=== PATIENT | female | born 1955 | race Caucasian/White ===

== ENCOUNTER 2020-03-23 11:55 | Observation (INO) | payer OTHER ==
[2020-03-23] MEDS ORDERED: SODIUM CHLORIDE 0.9% 500 ML 500 ML IV ONE (12:17)
[2020-03-23] MEDS ORDERED: HYDROmorphone 1 MG/ML 1 ML SYRINGE IVP STA (12:17)
--- NOTE | 2020-03-23 12:20 | ED ---
General Adult HPI - General Chief complaint: Extremity Problem,Nontraumatic Stated complaint: Hands and leg pain Time Seen by Provider: 03/23/20 12:02 Source: patient, RN notes reviewed, old records reviewed Mode of arrival: ambulatory Limitations: no limitations - History of Present Illness Initial comments: 64-year-old female presents for evaluation of bilateral hand pain, bilateral knee pain. Patient states symptoms have been present for approximately 3 weeks although she has had chronic issues with generalized pain for some time. She has followed with both nephrology and rheumatology. 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 She has been taking Ultram and recently increased her dose with minimal improvement. She states the pain is similar to her chronic pain but has been worse for the past 3 weeks. She is hoping to have a referral to a pain management. She states that she previously followed with rheumatology. Was told that she did not have a rheumatological condition. She is managed by her primary care and nephrology. No fever. No vomiting. No chest pain. No abdominal pain, she had some constipation but this has resolved. - Related Data Home Medications Medication Instructions Recorded Confirmed Acetaminophen Tab [Tylenol] 500 mg PO DAILY PRN 03/23/20 03/23/20 Atorvastatin [Lipitor] 10 mg PO DAILY 03/23/20 03/23/20 Cholecalciferol [Vitamin D3 (25 125 mcg PO DAILY 03/23/20 03/23/20 Mcg = 1000 Iu)] Multivitamins, Thera [Multivitamin 1 tab PO DAILY 03/23/20 03/23/20 (formulary)] amLODIPine [Norvasc] 5 mg PO DAILY 03/23/20 03/23/20 lisinopriL [Zestril] 40 mg PO DAILY 03/23/20 03/23/20 traMADol HCl [Ultram] 50 mg PO TID PRN 03/23/20 03/23/20 Allergies Allergy/AdvReac Type Severity Reaction Status Date / Time codeine Allergy Confusion Verified 03/23/20 13:16 Review of Systems ROS Statement: Those systems with pertinent positive or pertinent negative responses have been documented in the HPI. ROS Other: All systems not noted in ROS Statement are negative. Past Medical History Past Medical History: Hyperlipidemia, Hypertension Additional Past Medical History / Comment(s): Glomerulonephritis History of Any Multi-Drug Resistant Organisms: None Reported Past Surgical History: Section Past Psychological History: No Psychological Hx Reported Smoking Status: Never smoker Past Alcohol Use History: None Reported Past Drug Use History: None Reported General Exam Limitations: no limitations General appearance: alert, in no apparent distress Head exam: Present: atraumatic, normocephalic Eye exam: Present: normal appearance, PERRL ENT exam: Present: normal exam Neck exam: Present: normal inspection. Absent: tenderness, meningismus Respiratory exam: Present: normal lung sounds bilaterally. Absent: respiratory distress, wheezes Cardiovascular Exam: Present: regular rate. Absent: normal rhythm, bradycardia, tachycardia GI/Abdominal exam: Present: soft. Absent: distended, tenderness, guarding, rebound Extremities exam: Present: tenderness, normal capillary refill, joint swelling (Mild soft tissue swelling of both hands, no erythema, no induration) Neurological exam: Present: alert, oriented X3, CN II-XII intact, normal gait. Absent: motor sensory deficit Psychiatric exam: Present: normal affect, normal mood Skin exam: Present: warm, dry, intact. Absent: cyanosis, diaphoretic Course Vital Signs 03/23/20 11:57 Temperature 98.4 F Pulse Rate 113 H Respiratory 18 Rate Blood Pressure 141/73 O2 Sat by Pulse 96 Oximetry Medical Decision Making - Medical Decision Making 64-year-old female with acute on chronic pain. I did obtain laboratory testing this patient, she has normal CBC, CMP showing no significant abnormalities, she has a mildly elevated CRP, urinalysis showing some hematuria otherwise unremarkable. Patient is in significant pain, discomfort. She will be admitted for pain control, case discussed with Dr. Mas who will admit. - Lab Data Result diagrams: 03/23/20 12:41 03/23/20 12:41 Lab Results 03/23/20 03/23/20 03/23/20 Range/Units 12:41 12:41 12:41 WBC 10.2 (3.8-10.6) k/uL RBC 4.36 (3.80-5.40) m/uL Hgb 13.8 (11.4-16.0) gm/dL Hct 39.9 (34.0-46.0) % MCV 91.4 (80.0-100.0) fL MCH 31.6 (25.0-35.0) pg MCHC 34.6 (31.0-37.0) g/dL RDW 12.0 (11.5-15.5) % Plt Count 232 (150-450) k/uL MPV 7.2 Neutrophils % 83 % Lymphocytes % 12 % Monocytes % 4 % Eosinophils % 2 % Basophils % 0 % Neutrophils # 8.5 H (1.3-7.7) k/uL Lymphocytes # 1.2 (1.0-4.8) k/uL Monocytes # 0.4 (0-1.0) k/uL Eosinophils # 0.2 (0-0.7) k/uL Basophils # 0.0 (0-0.2) k/uL PT 10.4 (9.0-12.0) sec INR 1.0 (<1.2) APTT 22.0 (22.0-30.0) sec Sodium 137 (137-145) mmol/L Potassium 4.1 (3.5-5.1) mmol/L Chloride 108 H (98-107) mmol/L Carbon Dioxide 21 L (22-30) mmol/L Anion Gap 8 mmol/L BUN 14 (7-17) mg/dL Creatinine 0.89 (0.52-1.04) mg/dL Est GFR (CKD-EPI)AfAm 80 (>60 ml/min/1.73 sqM) Est GFR (CKD-EPI)NonAf 69 (>60 ml/min/1.73 sqM) Glucose 117 H (74-99) mg/dL Calcium 10.6 H (8.4-10.2) mg/dL Magnesium 1.8 (1.6-2.3) mg/dL Total Bilirubin 0.9 (0.2-1.3) mg/dL AST 31 (14-36) U/L ALT 27 (4-34) U/L Alkaline Phosphatase 133 H (38-126) U/L C-Reactive Protein 18.2 H (<10.0) mg/L Total Protein 7.9 (6.3-8.2) g/dL Albumin 4.3 (3.5-5.0) g/dL Urine Color Urine Appearance (Clear) Urine pH (5.0-8.0) Ur Specific Orange (1.001-1.035) Urine Protein (Negative) Urine Glucose (UA) (Negative) Urine Ketones (Negative) Urine Blood (Negative) Urine Nitrite (Negative) Urine Bilirubin (Negative) Urine Urobilinogen (<2.0) mg/dL Ur Leukocyte Esterase (Negative) Urine RBC (0-5) /hpf Urine WBC (0-5) /hpf Ur Squamous Epith Cells (0-4) /hpf Urine Bacteria (None) /hpf Urine Mucus (None) /hpf Urine Yeast (Budding) (None) /hpf 03/23/20 Range/Units 12:57 WBC (3.8-10.6) k/uL RBC (3.80-5.40) m/uL Hgb (11.4-16.0) gm/dL Hct (34.0-46.0) % MCV (80.0-100.0) fL MCH (25.0-35.0) pg MCHC (31.0-37.0) g/dL RDW (11.5-15.5) % Plt Count (150-450) k/uL MPV Neutrophils % % Lymphocytes % % Monocytes % % Eosinophils % % Basophils % % Neutrophils # (1.3-7.7) k/uL Lymphocytes # (1.0-4.8) k/uL Monocytes # (0-1.0) k/uL Eosinophils # (0-0.7) k/uL Basophils # (0-0.2) k/uL PT (9.0-12.0) sec INR (<1.2) APTT (22.0-30.0) sec Sodium (137-145) mmol/L Potassium (3.5-5.1) mmol/L Chloride (98-107) mmol/L Carbon Dioxide (22-30) mmol/L Anion Gap mmol/L BUN (7-17) mg/dL Creatinine (0.52-1.04) mg/dL Est GFR (CKD-EPI)AfAm (>60 ml/min/1.73 sqM) Est GFR (CKD-EPI)NonAf (>60 ml/min/1.73 sqM) Glucose (74-99) mg/dL Calcium (8.4-10.2) mg/dL Magnesium (1.6-2.3) mg/dL Total Bilirubin (0.2-1.3) mg/dL AST (14-36) U/L ALT (4-34) U/L Alkaline Phosphatase (38-126) U/L C-Reactive Protein (<10.0) mg/L Total Protein (6.3-8.2) g/dL Albumin (3.5-5.0) g/dL Urine Color Yellow Urine Appearance Clear (Clear) Urine pH 6.0 (5.0-8.0) Ur Specific Orange 1.016 (1.001-1.035) Urine Protein 2+ H (Negative) Urine Glucose (UA) Negative (Negative) Urine Ketones Negative (Negative) Urine Blood Large H (Negative) Urine Nitrite Negative (Negative) Urine Bilirubin Negative (Negative) Urine Urobilinogen <2.0 (<2.0) mg/dL Ur Leukocyte Esterase Negative (Negative) Urine RBC 93 H (0-5) /hpf Urine WBC 4 (0-5) /hpf Ur Squamous Epith Cells <1 (0-4) /hpf Urine Bacteria Rare H (None) /hpf Urine Mucus Rare H (None) /hpf Urine Yeast (Budding) Rare H (None) /hpf Disposition Clinical Impression: Intractable pain Disposition: ADMITTED IP TO [facility] Condition: Stable Is patient prescribed a controlled substance at d/c from ED?: No Referrals: Dominik Xiong MD [Primary Care Provider] - 1-2 days Decision to Admit Reason: Admit from EC Decision Date: 03/23/20 Decision Time: 13:37
[2020-03-23 13:09] LABS: Basophils % (A) 0 %; Eosinophils # (A) 0.2 k/uL (0-0.7); Eosinophils % (A) 2 %; HCT 39.9 % (34.0-46.0); HGB 13.8 gm/dL (11.4-16.0); Lymphocytes # (A) 1.2 k/uL (1.0-4.8); Lymphocytes % (A) 12 %; MCH 31.6 pg (25.0-35.0); MCHC 34.6 g/dL (31.0-37.0); MCV 91.4 fL (80.0-100.0); Mean Platelet Volume 7.2; Monocytes # (A) 0.4 k/uL (0-1.0); Monocytes % (A) 4 %; Neutrophils # (A) 8.5 k/uL (1.3-7.7); Neutrophils % (A) 83 %; Platelet Count 232 k/uL (150-450); RBC 4.36 m/uL (3.80-5.40); WBC 10.2 k/uL (3.8-10.6)
[2020-03-23 13:18] LABS: Prothrombin Time 10.4 sec (9.0-12.0)
[2020-03-23 13:21] LABS: Appearance,Urine Clear (Clear); Bacteria,Urine Rare /hpf; Bilirubin,Urine Negative (Negative); Blood,Urine Large (Negative); Budding Yeast,Urine Rare /hpf; Color,Urine Yellow; Glucose,Urine (UA) Negative (Negative); Ketones,Urine Negative (Negative); Leukocyte Esterase,Urine Negative (Negative); Mucus,Urine Rare /hpf; Nitrite,Urine Negative (Negative); Protein,Urine 2+ (Negative); RBC,Urine 93 /hpf (0-5); Specific Gravity,Urine 1.016 (1.001-1.035); Squamous Epithelial Cell,Urine <1 /hpf (0-4); Urobilinogen,Urine <2.0 mg/dL (<2.0); WBC,Urine 4 /hpf (0-5)
[2020-03-23 13:22] LABS: Albumin 4.3 g/dL (3.5-5.0); C Reactive Protein 18.2 mg/L (<10.0); Calcium 10.6 mg/dL (8.4-10.2); Magnesium 1.8 mg/dL (1.6-2.3); Potassium 4.1 mmol/L (3.5-5.1); Total Bilirubin 0.9 mg/dL (0.2-1.3); Total Protein 7.9 g/dL (6.3-8.2)
[2020-03-23] MEDS ORDERED: NALOXONE 0.4 MG/ML 1 ML VIAL IV PRN (13:34)
[2020-03-23] MEDS ORDERED: HYDROmorphone 1 MG/ML 1 ML SYRINGE IVP PRN (13:34)
[2020-03-23] MEDS ORDERED: HYDROmorphone 0.5 MG/0.5 ML SYRINGE IVP PRN (13:34)
[2020-03-23] MEDS ORDERED: traMADol 50 MG TAB PO PRN (16:10)
[2020-03-23] MEDS ORDERED: ALPRAZolam 0.25 MG TAB PO PRN (16:12)
[2020-03-23] MEDS ORDERED: TEMAZEPAM 15 MG CAP PO PRN (16:12)
--- NOTE | 2020-03-23 16:35 | XR ---
EXAMINATION TYPE: XR chest 1V portable DATE OF EXAM: 03/23/2020 Comparison: None Clinical History: 64-year-old female CHF, shortness of breath Findings: The heart is borderline the mildly enlarged. Mild interstitial prominence especially in the mid and l ower lungs. No consolidation or pleural effusion otherwise seen. Impression: Borderline to mildly enlarged heart size. Interstitial prominence could reflect mild pulmonary vascul ar congestion. No teresa infiltrate or pulmonary edema.
--- NOTE | 2020-03-23 16:52 | HP ---
HISTORY AND PHYSICAL DATE OF SERVICE: 03/23/2020 CHIEF COMPLAINTS: Joint pains and failure of outpatient treatment. HISTORY OF PRESENT ILLNESS: This 64-year-old woman with a past medical history of hypertension, hyperlipidemia, history of glomerulonephritis, section, being followed by Dr. Anila Gramajo in the outpatient setting, is also following with Nephrology for glomerulonephritis. The patient is complaining of significant aches and pains all over the body as well as both wrist joints and both knee joints for the last several months. Because of lack of improvement with outpatient treatment, the patient came to [facility] and was admitted for further evaluation and treatment. The patient is also seen by Rheumatology, Dr. Kieta, and her multiple testing results are not available. There is no history of any fever, rigor or chills. No history of headache, loss of consciousness, seizures at this time. PAST MEDICAL HISTORY: History of hypertension, hyperlipidemia, history of glomerulonephritis, history of section. HOME MEDICATIONS: 1. Multivitamins 1 p.o. daily. 2. Vitamin D3 125 mcg p.o. daily. 3. Zestril 40 mg p.o. daily. 4. Norvasc 5 mg daily. 5. Lipitor 10 mg daily. 6. Ultram 50 mg t.i.d. p.r.n. 7. Tylenol p.r.n. ALLERGIES: CODEINE. FAMILY HISTORY: No history of heart disease or strokes in the family. SOCIAL HISTORY: No history of smoking. No history of alcohol intake. REVIEW OF SYSTEMS: ENT: No diminished hearing. No diminished vision. CARDIOVASCULAR SYSTEM: No angina, palpitations. RESPIRATORY SYSTEM: As mentioned earlier. GI: No nausea, vomiting. : As mentioned earlier. NERVOUS SYSTEM: No numbness, weakness. ALLERGY/IMMUNOLOGY: No asthma, hayfever. MUSCULOSKELETAL: As mentioned earlier. HEMATOLOGY/ONCOLOGY: No history of anemia. ENDOCRINE: No history of diabetes, hypothyroidism. CONSTITUTIONAL: As mentioned earlier. DERMATOLOGY: Negative. RHEUMATOLOGY: As mentioned earlier. PSYCHIATRY: Negative. PHYSICAL EXAMINATION: Alert and oriented x3. Pulse 113, blood pressure 141/73, respiration 18, temperature 98.4, pulse ox 96% on room air. HEENT: Conjunctivae normal. NECK: No jugular venous distention. CARDIOVASCULAR SYSTEM: S1, S2 muffled. RESPIRATORY SYSTEM: Breath sounds diminished at the bases. No rhonchi. No crackles. ABDOMEN: Soft, non-tender. No mass palpable. LEGS: No edema. No swelling. NERVOUS SYSTEM: Higher functions as mentioned earlier. Moves all 4 limbs. No focal motor or sensory deficit. LYMPHATICS: No lymph node palpable in neck, axillae or groin. SKIN: No ulcer, rash, bleeding. JOINTS: Significant pain on movement of both wrist joints and interphalangeal joints as well as metacarpal joints. Pain with movement of both knee joints also present. LABS: CBC within normal limits. CO2 is 21. Calcium is 10.6, glucose 117. Alkaline phosphatase 133 and C-reactive protein is 18.2. ASSESSMENT: 1. Bilateral arthritis with failure of outpatient treatment with severe pain. Rule out collagen muscular disorder. 2. History of glomerulonephritis. 3. Elevated CRP. 4. Hypercalcemia, mild. 5. Hematuria. 6. Glomerulonephritis history. 7. Hypertension. 8. Hyperlipidemia. 9. History of section. 10.Obesity with body mass index of 30.7. 11.FULL CODE. RECOMMENDATIONS AND DISCUSSION: In this 64-year-old woman who presented with multiple complex medical issues, we will monitor the patient closely, continue the current medications, continue symptomatic treatment. I recommend pain management and nephrology evaluations. Otherwise, baseline rheumatology workup repeated. Prognosis guarded because of multiple complex medical issues. Further recommendations to follow. A copy of this dictation is being forwarded to Dr. Anila Gramajo, who is the primary physician. See orders for details. DVT prophylaxis. GI prophylaxis. MMODL / IJN: [id number] /
[2020-03-23] MEDS: ACETAMINOPHEN TAB 325 MG TAB PO PRN (17:00)
[2020-03-23] MEDS: SODIUM CHLORIDE 0.9% 1,000 ML IV SCH (17:02)
[2020-03-23 17:26] LABS: Uric Acid 6.4 mg/dL (3.7-7.4)
[2020-03-23] MEDS ORDERED: ONDANSETRON 4 MG/2 ML VIAL IVP PRN (17:38)
[2020-03-23] MEDS: HEPARIN SODIUM,PORCINE 5,000 UNIT/ML 1 ML VIAL SQ SCH (21:01)
[2020-03-23 23:26] LABS: DNA Double-Stranded NEGATIVE (NEGATIVE)
[2020-03-24 05:49] LABS: Basophils % (A) 1 %; Eosinophils # (A) 0.1 k/uL (0-0.7); Eosinophils % (A) 3 %; HCT 35.4 % (34.0-46.0); HGB 12.1 gm/dL (11.4-16.0); Lymphocytes # (A) 1.3 k/uL (1.0-4.8); Lymphocytes % (A) 32 %; MCH 31.8 pg (25.0-35.0); MCHC 34.3 g/dL (31.0-37.0); MCV 92.8 fL (80.0-100.0); Mean Platelet Volume 7.2; Monocytes # (A) 0.2 k/uL (0-1.0); Monocytes % (A) 5 %; Neutrophils # (A) 2.4 k/uL (1.3-7.7); Neutrophils % (A) 58 %; Platelet Count 194 k/uL (150-450); RBC 3.82 m/uL (3.80-5.40); RDW 12.3 % (11.5-15.5); WBC 4.1 k/uL (3.8-10.6)
[2020-03-24 06:01] LABS: Albumin 3.3 g/dL (3.5-5.0); Calcium 9.6 mg/dL (8.4-10.2); Potassium 3.9 mmol/L (3.5-5.1); Total Bilirubin 0.6 mg/dL (0.2-1.3); Total Protein 6.3 g/dL (6.3-8.2)
[2020-03-24] MEDS: PANTOPRAZOLE 40 MG TABLET PO SCH (06:31)
[2020-03-24] MEDS: ACETAMINOPHEN TAB 325 MG TAB PO PRN (06:34)
[2020-03-24] MEDS: MULTIVITAMINS, THERA 1 EACH TAB PO SCH (09:36)
[2020-03-24] MEDS: CHOLECALCIFEROL 25 MCG (1000 IU) TABLET PO SCH (09:36)
[2020-03-24] MEDS: amLODIPine 5 MG TAB PO SCH (09:36)
[2020-03-24] MEDS: ATORVASTATIN 10 MG TAB PO SCH (09:36)
[2020-03-24] MEDS: lisinopriL 20 MG TAB PO SCH (09:36)
[2020-03-24] MEDS: HEPARIN SODIUM,PORCINE 5,000 UNIT/ML 1 ML VIAL SQ SCH ×2 (09:36→20:55)
--- NOTE | 2020-03-24 10:26 | P.NPCON ---
History of Present Illness - Reason for Consult glomerulonephritis - History of Present Illness Reason for consultation: GN History of present illness: Patient is a 64-year-old female seen in renal consultation for GN. Patient has history of biopsy-proven fibrillary glomerulonephritis. She underwent kidney biopsy in September 2019. Patient's baseline creatinine is in the range of 0.8-1. Patient presented to the hospital with pain and swelling in her hands. Patient's is been going on for the last few weeks. She was taking Tylenol and Ultram for pain which helped temporarily. She denies any edema in her lower extremities. No gross hematuria. No vomiting or diarrhea. Oral intake has been good. No chest pain or shortness of breath. She denies any history of malignancy. No fever or chills. Blood pressure is stable. She is maintained on lisinopril as well as Lipitor outpatient. She denies use of nonsteroidals. Patient states she has seen rheumatology in the past but is unsure of their recommendations. No rashes. Vital signs are stable. General: The patient appeared well nourished and normally developed. HEENT: Head exam is unremarkable. Neck is without jugular venous distension. LUNGS: Lungs are clear to auscultation and percussion. Breath sounds decreased. HEART: Rate and Rhythm are regular. ABDOMEN: Soft, nontender. EXTREMITITES: No edema in the lower extremities. Hands are swollen. Past Medical History Past Medical History: Hyperlipidemia, Hypertension, Renal Disease Additional Past Medical History / Comment(s): Glomerulonephritis History of Any Multi-Drug Resistant Organisms: None Reported Past Surgical History: Section, Tonsillectomy Additional Past Surgical History / Comment(s): Kidney biopsy Sep 2019 Past Anesthesia/Blood Transfusion Reactions: No Reported Reaction Additional Past Anesthesia/Blood Transfusion Reaction / Comment(s): never had a blood transfusion Past Psychological History: No Psychological Hx Reported Smoking Status: Never smoker Past Alcohol Use History: None Reported Past Drug Use History: None Reported - Past Family History Mother History Unknown: Yes Additional Family Medical History / Comment(s): adopted Medications and Allergies Home Medications Medication Instructions Recorded Confirmed Type Acetaminophen Tab [Tylenol] 500 mg PO DAILY PRN 03/23/20 03/23/20 History Atorvastatin [Lipitor] 10 mg PO DAILY 03/23/20 03/23/20 History Cholecalciferol [Vitamin D3 (25 125 mcg PO DAILY 03/23/20 03/23/20 History Mcg = 1000 Iu)] Multivitamins, Thera [Multivitamin 1 tab PO DAILY 03/23/20 03/23/20 History (formulary)] amLODIPine [Norvasc] 5 mg PO DAILY 03/23/20 03/23/20 History lisinopriL [Zestril] 40 mg PO DAILY 03/23/20 03/23/20 History traMADol HCl [Ultram] 50 mg PO TID PRN 03/23/20 03/23/20 History Allergies Allergy/AdvReac Type Severity Reaction Status Date / Time codeine Allergy Confusion Verified 03/23/20 18:09 Physical Exam Vitals: Vital Signs Temp Pulse Pulse Resp BP BP Pulse Ox 03/24/20 09:03 98.1 F 77 14 116/71 97 03/24/20 01:58 97.9 F 67 16 113/69 96 03/23/20 20:05 98.2 F 73 16 109/67 95 03/23/20 16:50 97.3 F L 86 16 127/73 97 03/23/20 14:00 86 16 124/79 98 03/23/20 11:57 98.4 F 113 H 18 141/73 96 Intake and Output 03/23/20 03/24/20 03/24/20 22:59 06:59 14:59 Output Total 425 Balance -425 Output: Urine 425 Other: # [place] 1 Weight 77.5 kg Results - Lab Results Most recent lab results Calcium 9.6 mg/dL (8.4-10.2) 03/24/20 05:34 Magnesium 1.8 mg/dL (1.6-2.3) 03/23/20 12:41 03/24/20 05:34 03/24/20 05:34 Assessment and Plan Plan: Assessment: 1. 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 Baseline creatinine 0.8-1. She has not had nephrotic range proteinuria. 2. Bilateral hand swelling and pain. Possibly peripheral neuropathy versus autoimmune. BHUPENDRA positive. Double-stranded DNA antibody negative. 3. Hypertension with chronic disease. Controlled. Plan: Check electrophoresis and immunofixation studies to rule out underlying monoclonal gammopathy. Check serologies for Sjogren's as well as hepatitis C. Consult rheumatology. Check UPC. Maintain TONIE inhibitor and statin. Thank you for the consultation. I will continue to follow the patient with you during her hospital stay.
[2020-03-24 11:56] LABS: Creatinine,Urine Random 87.9 mg/dL; Protein/Creatinine Ratio,Urine 0.58
[2020-03-24] MEDS: SODIUM CHLORIDE 0.9% 1,000 ML IV SCH (13:47)
--- NOTE | 2020-03-24 15:03 | P.PAINCN ---
History of Present Illness - Reason for Consult Consult date: 03/24/20 - History of Present Illness This is a 64 years old female who was admitted to [facility] secondary to severe intense pain in the knee and upper extremity, patient failed management in outpatient setting., Patient reported that she had one year history of severe knee pain, bilateral wrist pain, and she was treated as an outpatient by a offset press assistant , and patient was found to have glomerulonephritis, patient reported that over the last few weeks intensity of the pain in the knee and wrist increases significantly, it is constant and increases with any movement, patient currently on Ultram 50 mg 3 times a day and Dilaudid 0.5 mg every 3 hours, she denies any side effect of the medication and she reported that the current medication helping to control her pain Past Medical History Past Medical History: Hyperlipidemia, Hypertension, Renal Disease Additional Past Medical History / Comment(s): Glomerulonephritis History of Any Multi-Drug Resistant Organisms: None Reported Past Surgical History: Section, Tonsillectomy Additional Past Surgical History / Comment(s): Kidney biopsy Sep 2019 Past Anesthesia/Blood Transfusion Reactions: No Reported Reaction Additional Past Anesthesia/Blood Transfusion Reaction / Comm: never had a blood transfusion Past Psychological History: No Psychological Hx Reported Smoking Status: Never smoker Past Alcohol Use History: None Reported Past Drug Use History: None Reported - Past Family History Mother History Unknown: Yes Additional Family Medical History / Comment(s): adopted Medications and Allergies Home Medications Medication Instructions Recorded Confirmed Type Acetaminophen Tab [Tylenol] 500 mg PO DAILY PRN 03/23/20 03/23/20 History Atorvastatin [Lipitor] 10 mg PO DAILY 03/23/20 03/23/20 History Cholecalciferol [Vitamin D3 (25 125 mcg PO DAILY 03/23/20 03/23/20 History Mcg = 1000 Iu)] Multivitamins, Thera [Multivitamin 1 tab PO DAILY 03/23/20 03/23/20 History (formulary)] amLODIPine [Norvasc] 5 mg PO DAILY 03/23/20 03/23/20 History lisinopriL [Zestril] 40 mg PO DAILY 03/23/20 03/23/20 History traMADol HCl [Ultram] 50 mg PO TID PRN 03/23/20 03/23/20 History Allergies Allergy/AdvReac Type Severity Reaction Status Date / Time codeine Allergy Confusion Verified 03/23/20 18:09 Physical Exam Vitals: Vital Signs Temp Pulse Resp BP Pulse Ox 03/24/20 13:45 97.8 F 79 14 136/74 95 03/24/20 09:03 98.1 F 77 14 116/71 97 03/24/20 01:58 97.9 F 67 16 113/69 96 03/23/20 20:05 98.2 F 73 16 109/67 95 03/23/20 16:50 97.3 F L 86 16 127/73 97 Intake and Output 03/23/20 03/24/20 03/24/20 22:59 06:59 14:59 Output Total 425 Balance -425 Output: Urine 425 Other: # Voids 2 # Emeses 1 Weight 77.5 kg Physical Examinations : -Constitutiona : Cooperative , not in acute distress . -HEENT : nech : supple , no Lymphadenopathy , normal thyroid size . : eyes : no ptosis , no icterus, no photo phobia . - neurologic : Cranial nerve II to XII intact , no focal neurological deffecit . -psychatric : alert , oriented X 3 , appropriate affect , intact judgment and insight . -Lymphatic : no Lymphadenopathy . - musculoskeltal : Cervical Spine motor stregnth in the deltoid and biceps, normal right side , normal Left side motor stregnth biceps and the wrist extensors normal right side ,normal left side . motor stregnth in the triceps muscle . normal Right side , normal Left side deep tendon reflexes normal at the biceps , normal at Brachioradialis , normal at triceps. Bilateral wrist and hand . There is very minimal edema,no erythema, Rest and fingers joint. Range of motion, no signs of effusion, Normal sensation Lumber spine moter stegnth lower extremities ,thigh and legs 5/5 Right side , 5/5 Left side deep tendon reflexes : normal Knee Jerk , normal ankle Jerk Knee joints = tenderness over the medial aspect of the left knee No erythema , no effusion , no discoloration or redness of the skin Normal sensation 4 range of motion active and passive movement of the knee joint is associated with pain Results CBC & Chem 7: 03/24/20 05:34 03/24/20 05:34 Labs: Abnormal Lab Results - Last 24 Hours (Table) 03/23/20 03/23/20 03/24/20 Range/Units 12:41 12:41 05:34 ESR 33 H (0-20) mm/hr Chloride 108 H (98-107) mmol/L Albumin 3.3 L (3.5-5.0) g/dL BHUPENDRA Screen POSITIVE A (NEGATIVE) Microbiology - Last 24 Hours (Table) 03/23/20 12:57 Urine Culture - Preliminary Urine,Voided Assessment and Plan Plan: Assessment and plan=1-Bilateral wrist and hand pain, and bilateral knee pain , could be secondary to autoimmune disorder versus peripheral neuropathy Patient currently on Ultram , Dilaudid ,Tylenol, and she reported that this medication helping to some degree to control her pain Recommend start patient on Medrol dose pack , and patient should be evaluated by a offset press assistant for an inpatient or outpatient Time with Patient: Greater than 30 PQRS Measure Charge Sheet PQRS Narrative: Do You Want the Pneumonia No Vaccine AT THIS TIME? Blood Pressure [Left Arm] 136/74 Blood Pressure 124/79 Pain Intensity [Bilateral Hand 0 ] Pain Intensity 0 Pain Scale Used Numeric (1 - 10) Scale Used Numeric (1 - 10) Home Medications: Ambulatory Orders Acetaminophen Tab [Tylenol] 500 mg PO DAILY PRN 03/23/20 Atorvastatin [Lipitor] 10 mg PO DAILY 03/23/20 Cholecalciferol [Vitamin D3 (25 Mcg = 1000 Iu)] 125 mcg PO DAILY 03/23/20 Multivitamins, Thera [Multivitamin (formulary)] 1 tab PO DAILY 03/23/20 amLODIPine [Norvasc] 5 mg PO DAILY 03/23/20 lisinopriL [Zestril] 40 mg PO DAILY 03/23/20 traMADol HCl [Ultram] 50 mg PO TID PRN 03/23/20
[2020-03-24 15:48] VITALS: BMI 31.2
--- NOTE | 2020-03-24 16:03 | PN ---
PROGRESS NOTE DATE OF SERVICE: 03/24/2020 This 64-year-old woman who was admitted with bilateral arthritis and failure of outpatient treatment is being closely monitored at this time. The patient has fibrillary glomerulonephritis. BHUPENDRA is positive. Otherwise, double-stranded DNA was negative. Dr. Tesfaye has recommended multiple immunological assays at this time. The patient is being closely monitored. Past medical history reviewed. REVIEW OF SYSTEMS: CARDIOVASCULAR SYSTEM: No angina, palpitations. RESPIRATORY SYSTEM: As mentioned earlier. GI: As mentioned earlier. : No dysuria or retention. NERVOUS SYSTEM: No numbness, weakness. CURRENT MEDICATIONS: Reviewed. They include Tylenol, Xanax, Norvasc, Lipitor, Neurontin, heparin, Zestril. Doses are reviewed. PHYSICAL EXAMINATION: Alert and oriented x3. Pulse 79, blood pressure 130/74, respiration 14, temperature 97.8, pulse ox 94% on room air. HEENT: Conjunctivae normal. NECK: No jugular venous distention. CARDIOVASCULAR SYSTEM: S1, S2 muffled. RESPIRATORY SYSTEM: Breath sounds diminished at the bases. No rhonchi. No crackles. ABDOMEN: Soft, non-tender. LEGS: No edema. No swelling. NERVOUS SYSTEM: No focal deficit. EXAMINATION OF JOINTS: Minimal tenderness present. LABS: Labs at this time show CBC within normal limits. Sodium 138, potassium 3.9. BHUPENDRA is positive. ASSESSMENT: 1. Bilateral arthritis in major and minor joints, bilateral, symmetrical, with failure of outpatient treatment. Severe pain. Rule out collagen vascular disorders or rheumatoid arthritis. 2. History of glomerulonephritis, fibrillary. 3. Positive BHUPENDRA. 4. Elevated CRP. 5. Mild hypercalcemia. 6. Hematuria. 7. Hypertension. 8. Hyperlipidemia. 9. History of section. 10.Obesity with body mass index of 30.7. 11.FULL CODE. RECOMMENDATIONS AND DISCUSSION: I recommend to continue current medications, continue with symptomatic treatment. Otherwise at this time we will continue to monitor. The renal function is stable. The patient has persistent hematuria. Chest x-ray is unremarkable. Recommend C-ANCA, p- ANCA as well as the rest of the rheumatology workup and vascular disorder workup ordered by Dr. Tesfaye. COVID-19 is negative from the [facility] system. I would also recommend a tertiary care referral to Rheumatology in an institution such as [facility]. Discussed with the patient, who understands and agrees. Further recommendations to follow. MMODL / IJN: [id number] /
[2020-03-24] MEDS: methylPREDNISolone 4 MG TAB TAPER PO SCH (16:04)
[2020-03-24 16:33] LABS: ANA Pattern Speckled
[2020-03-24 17:17] LABS: Hepatitis A Antibody IgM Non-Reactive (Non-Reactive); Hepatitis B Core IgM Non-Reactive (Non-Reactive); Hepatitis B Surface Antigen Non-Reactive (Non-Reactive); Hepatitis C IgG Antibody Non-Reactive (Non-Reactive)
[2020-03-24] MEDS: GABAPENTIN 100 MG CAP PO SCH (20:56)
[2020-03-25 07:45] VITALS: BP 105/66; PULSE 72; RESP 16; TEMP 98.2
[2020-03-25] MEDS: PANTOPRAZOLE 40 MG TABLET PO SCH (07:56)
[2020-03-25] MEDS: CHOLECALCIFEROL 25 MCG (1000 IU) TABLET PO SCH (08:55)
[2020-03-25] MEDS: amLODIPine 5 MG TAB PO SCH (08:56)
[2020-03-25] MEDS: HEPARIN SODIUM,PORCINE 5,000 UNIT/ML 1 ML VIAL SQ SCH (08:56)
[2020-03-25] MEDS: MULTIVITAMINS, THERA 1 EACH TAB PO SCH (08:56)
[2020-03-25] MEDS: ATORVASTATIN 10 MG TAB PO SCH (08:56)
[2020-03-25] MEDS: GABAPENTIN 100 MG CAP PO SCH (08:56)
[2020-03-25] MEDS: methylPREDNISolone 4 MG TAB TAPER PO SCH (08:56)
[2020-03-25] MEDS: lisinopriL 20 MG TAB PO SCH (08:56)
[2020-03-25 09:06] LABS: Basophils # (A) 0 X 10*3/uL (0.00-0.10); Basophils % (A) 0 %; Eosinophils # (A) 0 X 10*3/uL (0.04-0.35); Eosinophils % (A) 0 %; HCT 34.5 % (37.2-46.3); Lymphocytes # (A) 0.81 X 10*3/uL (0.90-5.00); Lymphocytes % (A) 18.9 %; MCH 31.7 pg (27.0-32.0); MCHC 34.8 g/dL (32.0-37.0); Mean Platelet Volume 10.3 fL (9.5-12.2); Monocytes # (A) 0.09 X 10*3/uL (0.20-1.00); Monocytes % (A) 2.1 %; Neutrophils # (A) 3.36 X 10*3/uL (1.80-7.70); Neutrophils % (A) 78.3 %; Platelet Count 222 X 10*3/uL (140-440); RBC 3.79 X 10*6/uL (4.10-5.20); WBC 4.29 X 10*3/uL (4.50-10.00)
[2020-03-25 09:57] LABS: African American GFR (CKD) 69.4 (60.0-200.0); Albumin 4.1 g/dL (3.80-4.90); Albumin/Globulin Ratio 1.86 (1.60-3.17); Anion Gap 12.1 mmol/L (4.00-12.00); Calcium 9.7 mg/dL (8.7-10.3); Carbon Dioxide 19.9 mmol/L (21.6-31.8); Globulin 2.2 g/dL (1.6-3.3); Non-African American GFR(CKD) 59.9 (60.0-200.0); Potassium 4.2 mmol/L (3.5-5.5); Total Bilirubin 0.4 mg/dL (0.2-1.2); Total Protein 6.3 g/dL (6.2-8.2)
--- NOTE | 2020-03-25 11:21 | P.PN ---
Subjective Patient is seen in follow-up for chronic kidney disease. Renal function is stable. Swelling in her hands is significantly improved. Pain is also better. No other complaints at this time. Vital signs are stable. General: The patient appeared well nourished and normally developed. HEENT: Head exam is unremarkable. Neck is without jugular venous distension. LUNGS: Breath sounds decreased. HEART: Rate and Rhythm are regular. ABDOMEN: Soft, nontender. EXTREMITITES: No edema. Objective - Vital Signs Vital signs: Vital Signs Temp 98.2 F 03/25/20 07:00 Pulse 72 03/25/20 07:00 Resp 16 03/25/20 07:00 BP 105/66 03/25/20 07:00 Pulse Ox 96 03/25/20 07:00 Intake & Output 03/24/20 03/25/20 03/25/20 18:59 06:59 18:59 Intake Total 620 236 Balance 620 236 Weight 77.5 kg Intake: Oral 620 236 Other: Voiding Method Toilet Toilet # Voids 2 - Labs CBC & Chem 7: 03/25/20 05:55 03/25/20 05:55 Labs: Abnormal Lab Results - Last 24 Hours (Table) 03/24/20 03/25/20 03/25/20 Range/Units 11:10 05:55 05:55 WBC 4.29 L (4.50-10.00) X 10*3/uL RBC 3.79 L (4.10-5.20) X 10*6/uL Hct 34.5 L (37.2-46.3) % Lymphocytes # 0.81 L (0.90-5.00) X 10*3/uL Monocytes # 0.09 L (0.20-1.00) X 10*3/uL Eosinophils # 0 L (0.04-0.35) X 10*3/uL Carbon Dioxide 19.9 L (21.6-31.8) mmol/L Anion Gap 12.10 H (4.00-12.00) mmol/L Est GFR (CKD-EPI)NonAf 59.9 L (60.0-200.0) Glucose 124 H (70-110) mg/dL Total Protein (PEP) 6.0 L (6.2-8.2) g/dL Microbiology - Last 24 Hours (Table) 03/23/20 12:57 Urine Culture - Final Urine,Voided Assessment and Plan Plan: Assessment: 1. 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 Baseline creatinine 0.8-1. She has not had nephrotic range proteinuria. UPC 0.5. 2. Bilateral hand swelling and pain. Possibly peripheral neuropathy versus autoimmune. BHUPENDRA positive. Rest of the serologies negative so far. 3. Hypertension with chronic disease. Controlled. Plan: Follow-up electrophoresis and immunofixation studies to rule out underlying monoclonal gammopathy. Maintain TONIE inhibitor and statin. She is receiving a Medrol Dosepak. Continue gabapentin. Hold amlodipine for systolic blood pressure less than 120. Case discussed with the primary team. She was advised to follow-up with rheumatology at a tertiary care center for further workup.
[2020-03-25 13:01] LABS: Free Kappa Lt Chain Qnt, Serum 4.22 mg/dL (0.33-1.94)
[2020-03-25] MEDS: SODIUM CHLORIDE 0.9% 1,000 ML IV SCH (13:13)
[2020-03-25 15:03] LABS: Albumin 3.12 g/dL (3.80-4.90); Gamma Globulin 1.23 g/dL (0.70-1.50)
--- NOTE | 2020-03-25 20:49 | DS ---
DISCHARGE SUMMARY DATE OF SERVICE: 03/25/2020 FINAL DIAGNOSES: 1. Bilateral arthritis in major and minor joints, bilateral, symmetrical, with failure of outpatient treatment with severe pain. Rule out collagen vascular disorder, rheumatoid arthritis. 2. History of fibrillary glomerulonephritis. 3. Positive BHUPENDRA. 4. Elevated CRP. 5. Mild hypercalcemia. 6. Hematuria. 7. Hypertension. 8. Hyperlipidemia. 9. History of section. 10.Obesity with body mass index of 30.7. 11.FULL CODE. DISCHARGE DISPOSITION: The patient will be discharged in stable condition with guarded prognosis. HISTORY OF PRESENT ILLNESS: This 64-year-old woman with a past medical history of multiple medical problems was admitted with bilateral arthritis involving the major and minor joints. BHUPENDRA was positive. The rest of the negative and the patient also was evaluated in the outpatient setting, treated empirically, and kappa lambda chains were also high. Hepatitis panel was negative. The patient improved significantly. On exam, vitals are stable. CARDIOVASCULAR SYSTEM: S1, S2 muffled. ABDOMEN: Soft. NERVOUS SYSTEM: No focal deficit. The patient will be followed by Dr. Tesfaye regarding the fibrillary glomerulonephritis. I would also recommend a tertiary care evaluation at the [facility] Rheumatology Department for evaluation of the symptomatology because of the positive BHUPENDRA, lack of other obvious collagen vascular lab abnormalities. Prognosis is guarded. DISCHARGE ADVICE AND MEDICATIONS: 1. Diet is cardiac. 2. Activity limited until followup. 3. Follow up with Dr. Xiong in 2 to 3 days. 4. Follow up with Dr. Tesfaye as recommended. 5. Lipitor 10 mg daily. 6. Multivitamins 1 p.o. daily. 7. Norvasc 5 mg daily. 8. Tylenol p.r.n. 9. Ultram p.r.n. 10.Vitamin D3 125 mcg p.o. daily. 11.Zestril 40 mg daily. 12.Neurontin 100 mg p.o. b.i.d. Once again, the patient will be discharged in stable condition with guarded prognosis. MMODL / IJN: [id number] /
[2020-03-29 14:40] LABS: C-ANCA <1:20 Titer (<1:20)
== END 2020-03-25 13:42 ==
LOC: EC 11:55 → 6NMEDSUR 13:34 → 6PED 15:03 → 6NMEDSUR 03-24 08:42
PROVIDERS: ADMIT Hospitalist; ATTEND Hospitalist
DX: M19.042 Primary osteoarthritis, left hand (principal); M19.041 Primary osteoarthritis, right hand; I12.9 Hypertensive chronic kidney disease with stage 1 through stage 4 chronic kidney disease, or unspecified chronic kidney disease; N18.2 Chronic kidney disease, stage 2 (mild); M79.89 Other specified soft tissue disorders; M25.561 Pain in right knee; M25.562 Pain in left knee; G89.29 Other chronic pain; E78.5 Hyperlipidemia, unspecified; I10 Essential (primary) hypertension; R79.82 Elevated C-reactive protein (CRP); E66.9 Obesity, unspecified; Z68.30 Body mass index [BMI] 30.0-30.9, adult; E83.52 Hypercalcemia; R76.8 Other specified abnormal immunological findings in serum; Z20.822 Contact with and (suspected) exposure to COVID-19; Z79.899 Other long term (current) drug therapy; Z79.891 Long term (current) use of opiate analgesic; Z88.5 Allergy status to narcotic agent; Z87.448 Personal history of other diseases of urinary system
CPT/HCPCS: 96361 ×4; 96372 ×3; 96375; 96376; 96374; 99285; 36415; 86255; 86160 ×2; 82570; 80053 ×3; 80074; 85652; 84156; 82595; 83655; 83735; 84550; 85025 ×3; 85610; 85730; 86140; 86431; 81001; 84165; 86038; 86039; 86225; 86235; 87086; 86334; 86335; 83883; 87635; 71045; G0378 ×4; J1644 ×3; J2405; J1170; J7509 ×2; 86162